=== PATIENT | female | born 1980 | race American Indian/Alaskan Native ===

== ENCOUNTER 2017-08-23 08:43 | Emergency (ER) | payer OTHER ==
[2017-08-23 08:51] VITALS: BP 135/87; PULSE 89; RESP 16; TEMP 98; O2SAT 95
--- NOTE | 2017-08-23 08:59 | C.PDOC ---
History Of Present Illness 37-year-old female, presents to the emergency department with complaints of sore throat x4 days, that is associated with nasal congestion, headache, and subjective fever. Patient states she is taking Tylenol at home with no relief. Denies cough, back pain, change in bowel habits, symptoms, or any other associated symptoms. No other complaints at this time. Time Seen by Provider: 08/23/17 08:50 Chief Complaint (Nursing): ENT Problem History Per: Patient History/Exam Limitations: no limitations Onset/Duration Of Symptoms: Days Current Symptoms Are (Timing): Still Present Location Of Pain: Throat Past Medical History Reviewed: Historical Data, Nursing Documentation, Vital Signs Vital Signs: Last Vital Signs Temp 98 F 08/23/17 08:46 Pulse 89 08/23/17 08:46 Resp 16 08/23/17 08:46 BP 135/87 08/23/17 08:46 Pulse Ox 95 08/23/17 09:35 - Medical History PMH: Diabetes Family History: States: No Known Family Hx - Social History Hx Tobacco Use: No Hx Alcohol Use: Yes Hx Substance Use: No - Immunization History Hx Tetanus Toxoid Vaccination: No Hx Influenza Vaccination: No Hx Pneumococcal Vaccination: No Review Of Systems Except As Marked, All Systems Reviewed And Found Negative. Constitutional: Positive for: Fever (subjective) ENT: Positive for: Nose Congestion, Throat Pain Respiratory: Negative for: Shortness of Breath Gastrointestinal: Negative for: Nausea, Vomiting Musculoskeletal: Negative for: Back Pain Neurological: Positive for: Headache. Negative for: Dizziness Physical Exam - Physical Exam Appears: Non-toxic, No Acute Distress Skin: Warm, Dry, No Rash Head: Atraumatic, Normacephalic Eye(s): bilateral: Normal Inspection, PERRL Ear(s): Bilateral: Normal Nose: Normal Oral Mucosa: Moist Lips: Normal Appearing Throat: Erythema (Mild), Other (Right sided tonsillar exudate) Neck: Normal ROM Chest: Symmetrical Cardiovascular: Rhythm Regular, No Murmur Respiratory: Normal Breath Sounds, No Accessory Muscle Use, No Rales, No Rhonchi , No Stridor, No Wheezing Extremity: Normal ROM Neurological/Psych: Oriented x3, Normal Speech ED Course And Treatment O2 Sat by Pulse Oximetry: 95 Medical Decision Making Medical Decision Making: Impression: sore throat, congestion Plan: Rapid strep Progress: Patient is positive for strep, will discharge home w/ Rx for Amoxicillin and outpatient f/u with clinic/PMD. All questions answered, asked to return for any new or worsening symptoms. Disposition Counseled Patient/Family Regarding: Diagnosis, Need For Followup, Rx Given - Disposition Referrals: Shaik Garcia MD [Staff Provider] - Disposition: HOME/ ROUTINE Disposition Time: 09:27 Condition: GOOD Additional Instructions: You have Strep throat and must take antibiotics twice daily. Take Tylenol or Motrin alternating every 4-6 hours for Fever 100.4F or higher. Rest and drink plenty of fluids to prevent dehydration. May also try lozenges or cepacol spray over the counter. Prescriptions: Amoxicillin [Amoxil 500 mg Cap] 500 mg PO BID #20 cap Instructions: Strep Throat (ED) Forms: [facility] (Russian), Work Excuse - POA Present On Arrival: None - Clinical Impression Clinical Impression: Strep pharyngitis - PA / INSULATION SUPERVISOR / Resident Statement MD/DO has reviewed & agrees with the documentation as recorded. - Scribe Statement The provider has reviewed the documentation as recorded by the Scribe (Amarjit eLone) All medical record entries made by the Scribe were at my direction and personally dictated by me. I have reviewed the chart and agree that the record accurately reflects my personal performance of the history, physical exam, medical decision making, and the department course for this patient. I have also personally directed, reviewed, and agree with the discharge instructions and disposition.
== END 2017-08-23 09:40 | disposition home or self-care (01) ==
LOC: C.ER 08:43
DX: J02.0 Streptococcal pharyngitis (principal)

== ENCOUNTER 2018-05-15 02:48 | Emergency (ER) | payer OTHER ==
[2018-05-15 03:04] VITALS: BP 124/75; RESP 14; TEMP 98.6; O2SAT 100
[2018-05-15] MEDS ORDERED: Aluminum Hydroxide/Magnesium Hydroxide Susp (30 mL) PO ONE (03:35)
[2018-05-15] MEDS ORDERED: Aluminum Hydroxide/Magnesium Hydroxide Susp (30 mL) ONE (03:35)
[2018-05-15 04:05] LABS: SQUAMOUS EPITHIAL 20 /hpf (0-5); URINE BACTERIA RARE (<OCC); URINE BILIRUBIN NEGATIVE (NEGATIVE); URINE BLOOD NEGATIVE (NEGATIVE); URINE CLARITY Hazy (Clear); URINE COLOR Yellow (YELLOW); URINE GLUCOSE (UA) NORMAL (Normal); URINE LEUKOCYTE ESTERASE 3+ Leu/uL (Negative); URINE PROTEIN NEGATIVE (NEGATIVE); URINE UROBILINOGEN NORMAL mg/dL (0.2-1.0)
--- NOTE | 2018-05-15 04:23 | C.PDOC ---
History Of Present Illness 37 yo female w/PMHx of gastric sleeve ( Jan, 2018) come in for evaluation of epigastric pain gradually developed since last night. Pt reports, pain is localized over epigastric area, describes as " pressure, feel gasy, burping " with some radiation to Right mid back area. Pt reports, took GasX at home hour [employer] with some improvement in pain. Pt admits, similar sx in past ' usually take GasX for pain". Otherwise, pt denies fever, chills, recent illness, CP, SOB, dyspnea, palpitation, diaphoresis, cough, wheezing, abd. pain, V/D, UTI sx. Ambulate to ED, not in nay apparent distress. Time Seen by Provider: 05/15/18 03:00 Chief Complaint (Nursing): Back Pain History Per: Patient Onset/Duration Of Symptoms: Gradual Past Medical History Reviewed: Historical Data, Nursing Documentation, Vital Signs Vital Signs: Last Vital Signs Temp 98.6 F 05/15/18 02:55 Pulse 77 05/15/18 05:06 Resp 14 05/15/18 02:55 BP 124/75 05/15/18 02:55 Pulse Ox 100 05/15/18 05:06 - Medical History PMH: Diabetes Denies: Chronic Kidney Disease Other Surgeries: gastric sleeve, January 2018 Family History: States: Unknown Family Hx - Social History Hx Tobacco Use: No Hx Alcohol Use: Yes Hx Substance Use: No - Immunization History Hx Tetanus Toxoid Vaccination: No Hx Influenza Vaccination: No Hx Pneumococcal Vaccination: No Review Of Systems Except As Marked, All Systems Reviewed And Found Negative. Constitutional: Negative for: Fever, Chills ENT: Negative for: Throat Pain Cardiovascular: Negative for: Chest Pain, Palpitations, Edema, Light Headedness Respiratory: Negative for: Cough, Shortness of Breath, SOB with Excertion, Pleuritic Pain, Sputum, Wheezing Gastrointestinal: Positive for: Abdominal Pain. Negative for: Nausea, Vomiting , Diarrhea, Constipation, Melena, Hematochezia Genitourinary: Negative for: Dysuria, Incontinence Musculoskeletal: Positive for: Back Pain. Negative for: Neck Pain Skin: Negative for: Lesions Neurological: Negative for: Weakness, Numbness, Headache, Dizziness Physical Exam - Physical Exam Appears: Well, Non-toxic, No Acute Distress Skin: Normal Color, Warm, Dry, No Rash Head: Normacephalic Eye(s): bilateral: PERRL Nose: No Flaring, No Discharge Oral Mucosa: Moist Tongue: Normal Appearing Lips: Normal Appearing Throat: No Erythema, No Drooling Neck: Trachea Midline, Supple Cardiovascular: Rhythm Regular Respiratory: No Decreased Breath Sounds, No Accessory Muscle Use, No Stridor, No Wheezing Gastrointestinal/Abdominal: Soft, Tenderness (mild epigastric), No Distention, No Guarding, No Rebound Back: No CVA Tenderness, No Vertebral Tenderness Extremity: Normal ROM, No Pedal Edema, No Deformity, No Swelling Neurological/Psych: Oriented x3, Normal Speech ED Course And Treatment - Laboratory Results Urine POC: Negative ECG: Interpreted By Me, Viewed By Me ECG Rhythm: Sinus Rhythm ECG Interpretation: Normal Interpretation Of ECG: SR@81/min, NAD, no acute T wave or ST-T changes O2 Sat by Pulse Oximetry: 100 Pulse Ox Interpretation: Normal - Radiology CXR: Interpreted by Me, Viewed By Me CXR Interpretation: Yes: No Acute Disease - Other Rad ABd, 2 views X-Ray: Interpreted by Me, Viewed By Me Interpretation: (-) air-fluid level, (+) stool impaction Progress Note: On re-evaluation, pt reports improveemnt in pain. Pt is afebrile , hemodynamicaly stable. NOn-toxic. PulsEOx 100% RA. ENT: No acute findings. neck: Supple, (-) JVD, (-) carotid bruits B/L. Lungs: CTA B/L, BS equal B/L. Abd: Mild peigastric tenderness, (-) guarding, (-) rebound. Back: (-) CVA tenderness. CXR, Abx xray review (-) acute abnoramlities. UA (+) WBC, RBC. Case discussed with ED attending and imaging, diagnostics review, disdcharge with outpt f/u recommend at this time. Pt has clinical findings c/w epigastric pain, UTI. Pt advised adn ref. to f/u with PMD, GI in 2-3 days for re-eval. return to ED if any worsening or new chanegs. Disposition Counseled Patient/Family Regarding: Studies Performed, Diagnosis, Need For Followup, Rx Given - Disposition Referrals: [facility] [Outside] Disposition: HOME/ ROUTINE Disposition Time: 04:23 Condition: STABLE Additional Instructions: Encourage fluids Diet restriction, avoid spicy, fatty food Take medication as prescribed Follow up with PMD, GI in 2-3 days for re-evaluation. Return to ED if any worsening or new changes. Prescriptions: Nitrofurantoin Macrocrystals [Macrobid] 1 cap PO BID #14 cap Pantoprazole Sodium [Protonix] 40 mg PO DAILY #20 ect Instructions: Urinary Tract Infections in Adults Forms: [facility] (Omani) - Clinical Impression Clinical Impression: UTI (urinary tract infection), Epigastric pain
[2018-05-15 05:07] VITALS: PULSE 77
--- NOTE | 2018-05-15 12:51 | RAD ---
Date of service: 05/15/2018. HISTORY: Epigastric pain, hx of gastric sleeve COMPARISON: Comparison made with chest radiograph 11/04/2014. FINDINGS: CHEST & ABDOMEN: Poor inspiration with low lung volumes, crowded bronchovascular markings and mild bibasilar atelectasis. Heart size upper limits of normal/borderline enlarged Postoperative changes of gastric sleeve evidenced by the presence of suture material along greater curvature of the stomach. No gross free intraperitoneal air seen under the diaphragmatic surfaces. No evidence of acute mechanical bowel obstruction however multiple non nondistended air-filled loops of small bowel noted suggesting mild ileus. Moderate amount stool seen with the large bowel suggesting mild fecal retention/ constipation. . BONES: Osseous structures appear grossly unremarkable OTHER FINDINGS: None. . IMPRESSION: Poor inspiration with low lung volumes, crowded bronchovascular markings and mild bibasilar atelectasis Findings suggest mild ileus with additional findings of mild constipation.
== END 2018-05-15 05:06 | disposition home or self-care (01) ==
LOC: C.ER 02:48
DX: N39.0 Urinary tract infection, site not specified (principal); R10.13 Epigastric pain